=== PATIENT | female | born 1960 | race Caucasian/White ===

== ENCOUNTER 2016-09-10 15:13 | Emergency (ER) | payer OTHER ==
[~2016-09-10] VITALS: Ht 157.5 cm; Wt 84.8 kg
[~2016-09-10 15:13] MED LIST: HYDR-3535 PO; HYDR50TA94 PO; LAMO150 PO; QUET100 PO; TRAZ100 PO; ZOLO50TA PO
[2016-09-10 15:16] VITALS: BP 109/56; PULSE 71; RESP 18; TEMP 98; O2SAT 97
[2016-09-10] MEDS ORDERED: SERT-132 PO (15:30)
[2016-09-10] MEDS ORDERED: TRAZ100T4 PO (15:30)
[2016-09-10] MEDS ORDERED: LAMO150T PO (15:30)
[2016-09-10] MEDS ORDERED: GABA300C5 PO (15:30)
[2016-09-10] MEDS ORDERED: ROBA750T PO (15:30)
[2016-09-10] MEDS ORDERED: QUET1TAB8 PO (15:30)
[2016-09-10] MEDS ORDERED: KETOROLAC TROMETHAMINE 60 MG/2 ML (IM) VIAL IM ONE (15:45)
[2016-09-10] MEDS ORDERED: RESP: ALBUTEROL 2.5 MG/IPRATROPIUM 0.5 MG NEB (SCH) INH ONE (15:45)
[2016-09-10] MEDS ORDERED: predniSONE 20 MG TAB PO ONE (15:45)
[2016-09-10] MEDS ORDERED: PROM6.256 PO (16:04)
[2016-09-10] MEDS ORDERED: ALBUAER3 INH (16:04)
[2016-09-10] MEDS ORDERED: AZIT500T2 PO (16:04)
[2016-09-10] MEDS ORDERED: BENZ100 PO (16:04)
--- NOTE | 2016-09-10 16:05 | PD ---
HPI Chief Complaint: Cold / Flu Symptoms Time Seen by Provider: 15:36 Travel History International Travel<30 days: No Contact w/Intl Traveler<30days: No Traveled to known affect area: No History of Present Illness HPI Patient is a 56-year-old female who presents to emergency room with complaints of cough and congestion and myalgias for the past 3 days. Patient reports that she has had no fevers or chills, reports that her cough has been productive and she has been bringing up increased whitish sputum. Patient does admit to smoking history. Patient reports that every in her apartment complexes sick with similar symptoms. Patient also with complaints of left-sided ear pain. Patient with no chest pain or shortness of breath. Patient with no other complaints. Patient did not receive influenza vaccine this year. PFSH Past Medical History Asthma: No Autoimmune Disease: No Cerebrovascular Accident: No Diabetes: No Diminished Hearing: No Hepatitis: Yes (C) Influenza Vaccination: No ?: Not Ovarian Cysts: Yes Past Surgical History Appendectomy: Yes Gynecologic Surgery: Yes (cystectomy r ovary) Family History Family History: Negative Social History Alcohol Use: No Tobacco Use: Yes (1/2 PPF) Substance Use: No Allergies-Medications (Allergen,Severity, Reaction): Coded Allergies: No Known Allergies (Unverified , 09/10/16) Reported Meds & Prescriptions Reported Meds & Active Scripts Active Proair Hfa 8.5 GM Inh (Albuterol Sulfate) 90 Mcg/Act Aer 2 Puff INH Q4-6H PRN 108 mcg/actuation Promethazine-Codeine Liq 6.25-10 Mg/5 Ml Syrp 5 Ml PO Q6H PRN 7 Days Tessalon Perles (Benzonatate) 100 Mg Cap 100 Mg PO TID PRN Azithromycin 500 Mg Tab 500 Mg PO DAILY Lortab (Hydrocodone-Acetaminophen) 10-325 Mg Tab 1 Tab PO Q6H PRN Reported Lamotrigine 150 Mg Tab 150 Mg PO DAILY Trazodone (Trazodone HCl) 100 Mg Tab 100 Mg PO HS Quetiapine (Quetiapine Fumarate) 100 Mg Tab 100 Mg PO HS Sertraline (Sertraline HCl) 50 Mg Tab 50 Mg PO DAILY Gabapentin 300 Mg Cap 300 Mg PO TID Robaxin (Methocarbamol) 750 Mg Tab 750 Mg PO TID Review of Systems General / Constitutional: No: Fever, Chills Respiratory: Positive: Cough, Wheezing, No: Shortness of Breath Gastrointestinal: No: Nausea, Vomiting, Diarrhea, Abdominal Pain Physical Exam Narrative GENERAL: No acute distress, nontoxic SKIN: Warm and dry. HEAD: Atraumatic. Normocephalic. EYES: No injection or drainage. ENT: No nasal bleeding or discharge. Mucous membranes pink and moist. NECK: Trachea midline. No JVD. CARDIOVASCULAR: Regular rate and rhythm. No murmur appreciated. RESPIRATORY: No accessory muscle use. Scattered wheezing and laterally. Breath sounds equal bilaterally. GASTROINTESTINAL: Abdomen soft, non-tender, nondistended. Hepatic and splenic margins not palpable. MUSCULOSKELETAL: No obvious deformities. No clubbing. No cyanosis. No edema. NEUROLOGICAL: Awake and alert. No obvious cranial nerve deficits. Motor grossly within normal limits. Normal speech. PSYCHIATRIC: Appropriate mood and affect; insight and judgment normal. Data Data Last Documented VS Vital Signs Date Time Temp Pulse Resp B/P Pulse Ox O2 Delivery O2 Flow Rate FiO2 09/10/16 15:16 98.0 71 18 109/56 97 Orders Influenzae A/B Antigen (09/10/16 15:40) Chest, Pa & Lat (09/10/16 15:40) Prednisone (Deltasone) (09/10/16 15:45) Albuterol-Ipratropium Neb (Duoneb Neb) (09/10/16 15:45) Ketorolac Inj (Toradol Inj) (09/10/16 15:45) MDM Medical Decision Making Medical Screen Exam Complete: Yes Emergency Medical Condition: Yes Interpretation(s) Vital Signs Date Time Temp Pulse Resp B/P Pulse Ox O2 Delivery O2 Flow Rate FiO2 09/10/16 15:16 98.0 71 18 109/56 97 Differential Diagnosis Acute bronchitis, pneumonia, influenza Narrative Course Patient is a 56-year-old female presents most room with complaints of cough, congestion for the past 3 days. Patient reports that she is bringing up thick white sputum, denies fevers or chills. Patient reports that everyone in her apartment complex is sick with similar symptoms. vss in er. pt overall nontoxic X-ray chest ordered, check for influenza as patient did not receive influenza vaccine this year. Plan to give patient a dose of oral steroids as well as a DuoNeb. Patient requesting medications for pain as she has been coughing so much, reports that her back hurts her so much from coughing. IM dose of Toradol ordered for patient. X-ray of the chest with small opacity at the left costophrenic angle which could represent infiltrate. Influenza negative. Patient most likely with pneumonia with bronchitis. We'll treat patient with antibiotics. Signs and symptoms of when to return to the emergency room reviewed patient. Patient will follow-up with primary care doctor and return to ER as needed Diagnosis Primary Impression: Pneumonia Qualified Code: J18.9 - Pneumonia due to infectious organism, unspecified laterality, unspecified part of lung Additional Impression: Acute bronchitis Qualified Code: J20.9 - Acute bronchitis, unspecified organism Patient Instructions: General Instructions Departure Forms: Tests/Procedures, Work Release Enter return to work date: Sep 12, 2016 Additional Instructions: Please return to ER as needed Please call your primary care doctor for earliest follow-up Return to ER if symptoms progress or worsen Please stop smoking cigarettes Please complete full course of antibiotic Med/Other Pt SpecificInfo: Prescription(s) given Scripts Albuterol 8.5 GM Inh (Proair Hfa 8.5 GM Inh)90 Mcg/Act Aer2 Puff INH Q4-6H PRN ( SHORTNESS OF BREATH) #1 INHALER Ref 0 108 mcg/actuation Prov:Magi Mathew DO 09/10/16 Promethazine-Codeine Liq 6.25-10 Mg/5 Ml Syrp5 Ml PO Q6H PRN (COUGH AND/OR COLD SYMPTOMS) 7 Days Ref 0 Prov:Magi Mathew DO 09/10/16 Benzonatate (Tessalon Perles)100 Mg [id number] Mg PO TID PRN (COUGH) #30 CAP Ref 0 Prov:Magi Mathew DO 09/10/16 Azithromycin 500 Mg [id number] Mg PO DAILY #5 TAB Ref 0 Prov:Magi Mathew DO 09/10/16 Disposition: 01 DISCHARGE HOME Condition: Stable Magi Mathew DO Sep 10, 2016 16:05
--- NOTE | 2016-09-10 16:18 | RADHPO ---
EXAM DATE/TIME: 09/10/2016 15:50 [facility] COMPARISON: No previous studies available for comparison. INDICATIONS : Fever, cough, short of breath, chest pains MEDICAL HISTORY : None. SURGICAL HISTORY : None. ENCOUNTER: Initial ACUITY: 2 days PAIN SCORE: 5/10 LOCATION: Bilateral chest FINDINGS: 2 view examination of the chest demonstrates the lungs are symmetrically aerated. On the frontal vie w, there is a small opacity adjacent to the left costophrenic angle which might represent a small inf iltrate. No evidence of pleural effusion; both hemidiaphragms well delineated. The heart is normal in size and configuration. No evidence of peribronchial thickening. CONCLUSION: Small opacity left costophrenic angle could represent an infiltrate. Recommend followup exams. Jett Madison MD on September 10, 2016 at 16:15 Board Certified Radiologist. This report was verified electronically.
[2016-09-10] MEDS ORDERED: AMOX875T PO (16:28)
[2016-09-10] MEDS ORDERED: AZITHROMYCIN 250 MG TAB PO ONE (16:30)
== END 2016-09-10 16:46 | disposition home or self-care (01) ==
LOC: PHEFT 15:13
DX: J18.9 Pneumonia, unspecified organism (principal); J20.9 Acute bronchitis, unspecified; H92.02 Otalgia, left ear; F17.200 Nicotine dependence, unspecified, uncomplicated
CPT/HCPCS: 71020; 87804; 94664; 96372; 99283; J1885; J7512

== ENCOUNTER 2016-12-27 16:55 | Emergency (ER) | payer OTHER ==
[~2016-12-27] VITALS: Ht 157.5 cm; Wt 80.0 kg
[~2016-12-27 16:55] MED LIST changes: +ALBUAER3 INH; +AMOX875T PO; +BENZ100 PO; +GABA300C5 PO; -HYDR50TA94 PO; -LAMO150 PO; +LAMO150T PO; +PROM6.256 PO; -QUET100 PO; +QUET1TAB8 PO; +ROBA750T PO; +SERT-132 PO; -TRAZ100 PO; +TRAZ100T4 PO; -ZOLO50TA PO
[2016-12-27 16:57] VITALS: BP 147/85; PULSE 99; RESP 24; TEMP 98.5; O2SAT 96
[2016-12-27] MEDS ORDERED: KETOROLAC TROMETHAMINE 30 MG/ML (IVP) VIAL IVP ONE (17:45)
[2016-12-27] MEDS ORDERED: SODIUM CHLORIDE 0.9% FLUSH 10 ML FLUSH IV FLUSH PRN (17:45)
--- NOTE | 2016-12-27 17:59 | PD ---
HPI . Back pain Chief Complaint: Back/ Neck Pain or Injury Time Seen by Provider: 17:41 Travel History International Travel<30 days: No Contact w/Intl Traveler<30days: No Traveled to known affect area: No History of Present Illness HPI Patient presents stating that she has an old back injury with an HNP. She states that it was a workman's comp case and that the case has been settled. Subsequently, she currently has no care for her chronic back pain. She states that she ran out of her medications 3 months ago. Since then, she has been using Aleve and ice. She states that she has a TENS unit batteries are and that she cannot afford to buy any new ones. Patient presents to us today complaining with a 2 day history of increasing pain in her low back. She states that she chronically has pain radiating to her right leg but that she now has pain radiating to her right groin. She rates the pain as 8/10. Pain is exacerbated by movement. She does not have any GI symptoms such as nausea, vomiting, diarrhea. She does not have any urinary tract symptoms such as dysuria, urgency or frequency. She has no fever. She has no appetite change. Furthermore, she does not have any neurological symptoms such as bowel or bladder incontinence. PFSH Past Medical History Asthma: No Autoimmune Disease: No Cerebrovascular Accident: No Diabetes: No Diminished Hearing: No Hepatitis: Yes (C) ?: Not Ovarian Cysts: Yes Past Surgical History Appendectomy: Yes Gynecologic Surgery: Yes (cystectomy r ovary) Social History Alcohol Use: No Tobacco Use: Yes (1/2 PPF) Substance Use: No Allergies-Medications (Allergen,Severity, Reaction): Coded Allergies: No Known Allergies (Unverified , 09/10/16) Reported Meds & Prescriptions Reported Meds & Active Scripts Active Flexeril (Cyclobenzaprine HCl) 10 Mg Tab 10 Mg PO TID Prednisone (48) 10 mg tab Dose Pack (Prednisone) 10 Mg Dspk 10 Mg PO DIRECTED Gabapentin 300 Mg Cap 300 Mg PO TID Amoxicillin 875 Mg Tab 875 Mg PO BID 10 Days Proair Hfa 8.5 GM Inh (Albuterol Sulfate) 90 Mcg/Act Aer 2 Puff INH Q4-6H PRN 108 mcg/actuation Promethazine-Codeine Liq 6.25-10 Mg/5 Ml Syrp 5 Ml PO Q6H PRN 7 Days Tessalon Perles (Benzonatate) 100 Mg Cap 100 Mg PO TID PRN Lortab (Hydrocodone-Acetaminophen) 10-325 Mg Tab 1 Tab PO Q6H PRN Reported Lamotrigine 150 Mg Tab 150 Mg PO DAILY Trazodone (Trazodone HCl) 100 Mg Tab 100 Mg PO HS Quetiapine (Quetiapine Fumarate) 100 Mg Tab 100 Mg PO HS Sertraline (Sertraline HCl) 50 Mg Tab 50 Mg PO DAILY Robaxin (Methocarbamol) 750 Mg Tab 750 Mg PO TID Review of Systems Except as stated in HPI: all other systems reviewed are Neg General / Constitutional: No: Fever, Chills Gastrointestinal: Positive: Abdominal Pain, No: Nausea, Vomiting, Diarrhea, Loss of Appetite Genitourinary: No: Urgency, Frequency, Dysuria, Incontinence Musculoskeletal: Positive: Myalgias, No: Weakness Physical Exam Narrative GENERAL: Awake and alert and in no acute distress. I found the patient lying on the stretcher twisted to her left at the waist with her left leg extended and on the stretcher and with her right leg extended at the hip and flexed the with the right foot on the floor. SKIN: Warm and dry. HEAD: Atraumatic. Normocephalic. EYES: Pupils equal and round. NECK: Trachea midline. CARDIOVASCULAR: Regular rate and rhythm. RESPIRATORY: No accessory muscle use. ABDOMEN: Abdomen is soft and nontender. Her pain is actually in her right groin. MUSCULOSKELETAL: No obvious deformities. No edema. Tenderness to percussion in the lower lumbar back. Leg raise bilaterally is negative. She has full and equal muscle strength in all muscle groups of her lower extremities. Log rolling of the right hip does not increase or groin pain. NEUROLOGICAL: Awake and alert. No obvious cranial nerve deficits. Motor grossly within normal limits. Normal speech. PSYCHIATRIC: Appropriate mood and affect; insight and judgment normal. Data Data Last Documented VS Vital Signs Date Time Temp Pulse Resp B/P Pulse Ox O2 Delivery O2 Flow Rate FiO2 12/27/16 16:57 98.5 99 24 147/85 96 Room Air Orders Complete Blood Count With Diff (12/27/16 17:41) Comprehensive Metabolic Panel (12/27/16 17:41) Urinalysis - C+S If Indicated (12/27/16 17:41) Iv Access Insert/Monitor (12/27/16 17:41) Sodium Chloride 0.9% Flush (Ns Flush) (12/27/16 17:45) Ketorolac Inj (Toradol Inj) (12/27/16 17:45) Ed Urine Pregnancytest Poc (12/27/16 17:41) Mri L Spine W/O Contrast (12/27/16 17:41) Cath For Specimen (12/27/16 19:29) Orphenadrine Inj (Norflex Inj) (12/27/16 19:45) Urine Culture (12/27/16 19:55) Labs Laboratory Tests Test 12/27/16 12/27/16 17:50 19:55 White Blood Count 6.0 TH/MM3 Red Blood Count 4.40 MIL/MM3 Hemoglobin 13.9 GM/DL Hematocrit 41.0 % Mean Corpuscular Volume 93.2 FL Mean Corpuscular Hemoglobin 31.5 PG Mean Corpuscular Hemoglobin 33.9 % Concent Red Cell Distribution Width 13.7 % Platelet Count 183 TH/MM3 Mean Platelet Volume 8.5 FL Neutrophils (%) (Auto) 53.2 % Lymphocytes (%) (Auto) 32.0 % Monocytes (%) (Auto) 12.7 % Eosinophils (%) (Auto) 1.1 % Basophils (%) (Auto) 1.0 % Neutrophils # (Auto) 3.2 TH/MM3 Lymphocytes # (Auto) 1.9 TH/MM3 Monocytes # (Auto) 0.8 TH/MM3 Eosinophils # (Auto) 0.1 TH/MM3 Basophils # (Auto) 0.1 TH/MM3 CBC Comment DIFF FINAL Differential Comment Sodium Level 140 MEQ/L Potassium Level 4.1 MEQ/L Chloride Level 108 MEQ/L Carbon Dioxide Level 25.8 MEQ/L Anion Gap 6 MEQ/L Blood Urea Nitrogen 13 MG/DL Creatinine 0.98 MG/DL Estimat Glomerular Filtration 59 ML/MIN Rate Random Glucose 92 MG/DL Calcium Level 9.4 MG/DL Total Bilirubin 0.4 MG/DL Aspartate Amino Transf 51 U/L (AST/SGOT) Alanine Aminotransferase 57 U/L (ALT/SGPT) Alkaline Phosphatase 69 U/L Total Protein 7.8 GM/DL Albumin 4.0 GM/DL Urine Color YELLOW Urine Turbidity HAZY Urine pH 6.0 Urine Specific [place] 1.030 Urine Protein TRACE mg/dL Urine Glucose (UA) NEG mg/dL Urine Ketones NEG mg/dL Urine Occult Blood NEG Urine Nitrite POS Urine Bilirubin NEG Urine Urobilinogen 2.0 MG/DL Urine Leukocyte Esterase MOD Urine RBC 4 /hpf Urine WBC 19 /hpf Urine Squamous Epithelial 1 /hpf Cells Urine Bacteria MANY /hpf Urine Hyaline Casts 3 /lpf Urine Mucus FEW /lpf Microscopic Urinalysis Comment CULTURE INDICATED MDM Medical Decision Making Medical Screen Exam Complete: Yes Emergency Medical Condition: Yes Differential Diagnosis Differential diagnosis includes but is not limited to muscular low back pain, DDD, spinal stenosis, epidural abscess, sciatica, kidney infection or stone. Narrative Course Patient presents complaining with low back pain radiating to the right leg and now to the right groin. I have ordered routine labs to look for an acute abdominal problem. I have ordered an MRI of her spine to rule out a surgical emergency associated with her spine. CBC & BMP Diagram 12/27/16 17:50 UA shows many bacteria, 19 white blood cells, positive nitrite and moderate leukocyte esterase Last Impressions Lumbar Spine MRI 12/27/16 [id number] Signed Impressions: Service Date/Time: Sunday, December 27, 2016 18:35 - CONCLUSION: 1. Degenerative disc disease and facet arthritis asymmetric to the right at L5-S1 with significant right-sided foraminal narrowing. If the patient has symptoms correlating to this diagnostic and therapeutic fluoroscopically guided nerve root injection could be considered if clinically indicated. Jimenez English MD Diagnosis Primary Impression: Degenerative disc disease at L5-S1 level Additional Impression: Urinary tract infection Qualified Code: N30.00 - Acute cystitis without hematuria Patient Instructions: Degenerative Disc Disease (DC), General Instructions Med/Other Pt SpecificInfo: Prescription(s) given Scripts Nitrofurantoin Monohydrate Macrocrystals (Macrobid)100 Mg [id number] Mg PO BID 7 Days Ref 0 Prov:Margarita Jones MD 12/27/16 Tizanidine (Zanaflex)6 Mg Cap6 Mg PO TID #90 CAP Ref 0 Prov:Margarita Jones MD 12/27/16 Prednisone (48) 10 mg tab Dose Pack 10 Mg [id number] Mg PO DIRECTED #1 DSPK Ref 0 Prov:Margarita Jones MD 5/17/17 Gabapentin 300 Mg [id number] Mg PO TID #90 CAP Ref 0 Prov:Margarita Jones MD 12/27/16 Disposition: 01 DISCHARGE HOME Condition: Stable Margarita Jones MD December 27, 2016 17:59
[2016-12-27 18:10] LABS: AUTOMATED NEUTROPHIL # 3.2 TH/MM3 (1.8-7.7); BASOPHIL # 0.1 TH/MM3 (0-0.2); EOSINOPHIL # 0.1 TH/MM3 (0-0.4); EOSINOPHIL % 1.1 % (0.0-4.0); HEMO FLAGS DIFF FINAL; LYMPHOCYTE # 1.9 TH/MM3 (1.0-4.8); MEAN CELL VOLUME 93.2 FL (80.0-100.0); MEAN CORPUSCULAR HEMOGLOBIN 31.5 PG (27.0-34.0); MEAN CORPUSCULAR HGB CONC 33.9 % (32.0-36.0); MONO % 12.7 % (0.0-8.0); NEUT % 53.2 % (16.0-70.0); PLATELET COUNT 183 TH/MM3 (150-450); RED CELL DISTRIBUTION WIDTH 13.7 % (11.6-17.2)
[2016-12-27 18:35] LABS: ALT (GPT) 57 U/L (10-53); ANION GAP 6 MEQ/L (5-15); AST (GOT) 51 U/L (15-37); BICARBONATE 25.8 MEQ/L (21.0-32.0); BLOOD UREA NITROGEN 13 MG/DL (7-18); CHLORIDE 108 MEQ/L (98-107); GLOMERULAR FILTRATION RATE 59 ML/MIN (>89); POTASSIUM 4.1 MEQ/L (3.5-5.1); SODIUM (NA) 140 MEQ/L (136-145)
[2016-12-27 18:38] LABS: ALKALINE PHOSPHATASE 69 U/L (45-117); TOTAL BILIRUBIN ADULT 0.4 MG/DL (0.2-1.0)
--- NOTE | 2016-12-27 19:28 | RADRPT ---
EXAM DATE/TIME: 12/27/2016 18:35 [facility] COMPARISON: No previous studies available for comparison. INDICATIONS : HNP. Back pain radiating to right leg. MEDICAL HISTORY : Hepatitis C. SURGICAL HISTORY : Appendectomy. ENCOUNTER: Initial ACUITY: 2 day PAIN SCORE: 9/10 LOCATION: back. TECHNIQUE: Multiplanar multisequence MRI of the lumbar spine was performed without contrast. FINDINGS: Sagittal images demonstrate normal vertebral body alignment and curvature. No focal areas of marrow r eplacement are identified. The conus terminates normally. Axial images were performed from T12-L1 thr ough L5-S1. T12-L1: No significant abnormalities identified. L1-L2: There is mild diffuse annular bulge of the disc. The neural foramina are clear bilaterally. There is no significant spinal canal stenosis. L2-L3: There is no evidence of disc protrusion or spinal canal stenosis. There is mild facet arthritis bilat erally. L3-L4: There is mild annular bulge of the disc. There is mild facet arthritis and ligamentum flavum hypertro phy bilaterally. The neural foramina are clear bilaterally. L4-L5: There is mild annular bulge of the disc. There is no significant spinal canal stenosis. L5-S1: There is mild annular bulge of the disc asymmetric to the right. There is moderate facet arthritis an d ligamentum flavum hypertrophy on the right. There is moderate to severe right-sided foraminal narro wing. There is no significant spinal canal stenosis. CONCLUSION: 1. Degenerative disc disease and facet arthritis asymmetric to the right at L5-S1 with significant ri ght-sided foraminal narrowing. If the patient has symptoms correlating to this diagnostic and therape uti fluoroscopically guided nerve root injection could be considered if clinically indicated. Jimenez English MD on December 27, 2016 at 19:23 Board Certified Radiologist. This report was verified electronically.
[2016-12-27] MEDS ORDERED: ORPHENADRINE INJ 60 MG/2 ML AMP IM ONE (19:45)
[2016-12-27] MEDS ORDERED: CYCL1TAB29 PO (20:05)
[2016-12-27] MEDS ORDERED: GABA300C5 PO (20:05)
[2016-12-27] MEDS ORDERED: PRED10PA2 PO (20:05)
[2016-12-27 20:13] LABS: BACTERIA, URINE MANY /hpf; BLOOD, URINE NEG (NEG); COMMENT (UR) CULTURE INDICATED; CULTURE IF INDICATED CULTURE INDICATED; GLUCOSE,URINE NEG (NEG); HYALINE CAST, URINE 3 /lpf (RARE); KETONE, URINE NEG (NEG); MUCUS URINE FEW /lpf (OCC); NITRITE,URINE POS (NEG); SQUAMOUS EPITHELIAL CELL URINE 1 /hpf (0-5); URINE COLOR YELLOW (YELLW/STRAW)
[2016-12-27] MEDS ORDERED: MACR100C2 PO (20:31)
[2016-12-27] MEDS ORDERED: ZANA6CAP PO (20:31)
== END 2016-12-27 20:54 | disposition home or self-care (01) ==
LOC: NEPD 16:55
DX: M51.37 Other intervertebral disc degeneration, lumbosacral region (principal); N30.00 Acute cystitis without hematuria; B96.20 Unspecified Escherichia coli [E. coli] as the cause of diseases classified elsewhere
CPT/HCPCS: 72148; 80053; 81001; 84703; 85025; 87077; 87086; 87186; 96372; 96374; 99284; J1885; J2360

== ENCOUNTER 2017-05-09 12:43 | Emergency (ER) | payer OTHER ==
[~2017-05-09] VITALS: Ht 157.5 cm; Wt 75.0 kg
[~2017-05-09 12:43] MED LIST changes: +MACR100C2 PO; +PRED10PA2 PO; +ZANA6CAP PO
[2017-05-09 12:44] VITALS: BP 131/83; PULSE 76; RESP 18; TEMP 98.3; O2SAT 98
--- NOTE | 2017-05-09 12:48 | PD ---
Physical Exam Time Seen by Provider: 12:47 Narrative 56 y/o female here with chills, lower back pain, dysuria, abnormal bowel movements for one month. Vital signs reviewed. Seen at triage desk. Awaiting bed placement. Data Data Last Documented VS Vital Signs Date Time Temp Pulse Resp B/P (MAP) Pulse Ox O2 Delivery O2 Flow Rate FiO2 05/09/17 12:44 98.3 76 18 131/83 (99) 98 Room Air [facility] Medical Record Reviewed: Yes Supervised Visit with SOSA: Chris Torres May 09, 2017 12:47
[2017-06-06] MEDS ORDERED: HYDR50TA94 PO (09:14)
[2017-06-06] MEDS ORDERED: QUET1TAB7 PO (09:14)
== END 2017-05-09 16:27 | disposition left against medical advice (07) ==
LOC: NED 12:43
DX: M54.5 Low back pain (principal); R30.0 Dysuria; Z53.21 Procedure and treatment not carried out due to patient leaving prior to being seen by health care provider
CPT/HCPCS: 99281

== ENCOUNTER 2017-08-14 16:37 | Emergency (ER) | payer OTHER ==
[~2017-08-14] VITALS: Ht 157.5 cm; Wt 81.8 kg
[~2017-08-14 16:37] MED LIST changes: -ALBUAER3 INH; -AMOX875T PO; -BENZ100 PO; -GABA300C5 PO; -HYDR-3535 PO; +HYDR50TA94 PO; -LAMO150T PO; -MACR100C2 PO; -PRED10PA2 PO; -PROM6.256 PO; +QUET1TAB7 PO; -QUET1TAB8 PO; -ROBA750T PO; -SERT-132 PO; -TRAZ100T4 PO; -ZANA6CAP PO
[2017-08-14 16:59] VITALS: BP 128/91; PULSE 78; RESP 14; TEMP 97.8; O2SAT 98
--- NOTE | 2017-08-14 18:13 | PD ---
HPI Chief Complaint: Psychiatric Symptoms Time Seen by Provider: 18:09 Travel History International Travel<30 days: No Contact w/Intl Traveler<30days: No Traveled to known affect area: No History of Present Illness HPI 57-year-old female brought in under the [employer] act for suicidal ideation. Patient has a long history of depression with suicidal ideation the past. Patient has to document suicidal attempts. Patient states her meds don' t seem to be working currently. She is also a history of chronic back pain, chronic right knee pain, as well as history of diverticulitis in the past. She currently has no acute medical problems. She is allergic to sulfa. PFSH Past Medical History Asthma: No Autoimmune Disease: No Cerebrovascular Accident: No Diabetes: No Diminished Hearing: No Hepatitis: Yes (C) Ovarian Cysts: Yes Past Surgical History Appendectomy: Yes Gynecologic Surgery: Yes (cystectomy r ovary) Social History Alcohol Use: No Tobacco Use: Yes (/ PPF) Substance Use: No Allergies-Medications (Allergen,Severity, Reaction): Coded Allergies: Sulfa (Sulfonamide Antibiotics) (Verified Allergy, Severe, 06/06/17) Reported Meds & Prescriptions Reported Meds & Active Scripts Active Hydroxyzine HCl 50 Mg Tab 50 Mg PO HS Quetiapine (Quetiapine Fumarate) 25 Mg Tab 25 Mg PO HS Review of Systems Except as stated in HPI: all other systems reviewed are Neg General / Constitutional: No: Fever Eyes: No: Visual changes HENT: No: Headaches Cardiovascular: No: Chest Pain or Discomfort Respiratory: No: Shortness of Breath Gastrointestinal: No: Abdominal Pain Genitourinary: No: Dysuria Musculoskeletal: Positive: Arthralgias, Pain Skin: No Rash Neurologic: No: Weakness Psychiatric: Positive: Depression, Suicidal Ideations (see history of present illness), No: Homicidal Ideation Endocrine: No: Polydipsia Hematologic/Lymphatic: No: Easy Bruising Physical Exam Narrative GENERAL: Patient appears in no acute distress. SKIN: Warm and dry. Normal color. Normal turgor. No signs of trauma. HEAD: Atraumatic. Normocephalic. EYES: Pupils equal and round. No scleral icterus. No injection or drainage. ENT: No nasal bleeding or discharge. Mucous membranes pink and moist. Pharynx is clear. Airway is patent. NECK: Trachea midline. Supple nontender. CARDIOVASCULAR: Regular rate and rhythm. RESPIRATORY: No accessory muscle use. Clear to auscultation. Breath sounds equal bilaterally. GASTROINTESTINAL: Abdomen soft, non-tender, nondistended. Hepatic and splenic margins not palpable. MUSCULOSKELETAL: Extremities without clubbing, cyanosis, or edema. No obvious deformities. Patient complains of low back pain with palpation but no specific tenderness is noted. No bony tenderness or step-off noted. NEUROLOGICAL: Awake and alert. No obvious cranial nerve deficits. Motor grossly within normal limits. Five out of 5 muscle strength in the arms and legs. Normal speech. PSYCHIATRIC: Appropriate mood and affect; insight and judgment normal. Data Data Last Documented VS Vital Signs Date Time Temp Pulse Resp B/P (MAP) Pulse Ox O2 Delivery O2 Flow Rate FiO2 08/14/17 16:59 97.8 78 14 128/91 (103) 98 Orders Orders Diet Regular Basic (08/14/17 Dinner) Complete Blood Count With Diff (08/14/17 17:59) Comprehensive Metabolic Panel (08/14/17 17:59) Urinalysis - C+S If Indicated (08/14/17 17:59) Psych Screen (08/14/17 17:59) Drug Screen, Random Urine (08/14/17 17:59) MDM Medical Decision Making Medical Screen Exam Complete: Yes Emergency Medical Condition: Yes Medical Record Reviewed: Yes Differential Diagnosis Loco act. Suicidal ideation. History of attempted suicide in the past. Low back pain. Narrative Course Psychiatric labs ordered as per protocol. Patient is given ibuprofen 600 mg by mouth as well as 650 mg acetaminophen by mouth. Patient is medically cleared for psychiatric evaluation. Diagnosis Primary Impression: Suicidal ideation Additional Impression: Medical clearance for psychiatric admission Condition: Stable Gopi Tee Aug 14, 2017 18:13
[2017-08-14] MEDS ORDERED: ACETAMINOPHEN 325 MG TAB PO ONE (18:15)
[2017-08-14] MEDS ORDERED: IBUPROFEN 600 MG TAB PO ONE (18:15)
[2017-08-14 18:31] VITALS: BP 127/72; PULSE 77; RESP 18; O2SAT 97
[2017-08-14 18:45] LABS: AUTOMATED NEUTROPHIL # 2.5 TH/MM3 (1.8-7.7); BASOPHIL # 0.1 TH/MM3 (0-0.2); BASOPHIL % 1.1 % (0.0-2.0); EOSINOPHIL # 0.2 TH/MM3 (0-0.4); EOSINOPHIL % 2.8 % (0.0-4.0); HEMATOCRIT 41.1 % (35.0-46.0); HEMOGLOBIN 14.2 GM/DL (11.6-15.3); LYMPH % 44.7 % (9.0-44.0); LYMPHOCYTE # 2.7 TH/MM3 (1.0-4.8); MEAN CELL VOLUME 92.8 FL (80.0-100.0); MEAN CORPUSCULAR HEMOGLOBIN 32.1 PG (27.0-34.0); MEAN CORPUSCULAR HGB CONC 34.6 % (32.0-36.0); MEAN PLATELET VOLUME 8.2 FL (7.0-11.0); MONO % 10.9 % (0.0-8.0); MONOCYTE # 0.7 TH/MM3 (0-0.9); NEUT % 40.5 % (16.0-70.0); PLATELET COUNT 197 TH/MM3 (150-450); RED BLOOD COUNT 4.43 MIL/MM3 (4.00-5.30); RED CELL DISTRIBUTION WIDTH 12.8 % (11.6-17.2); WHITE BLOOD COUNT 6.1 TH/MM3 (4.0-11.0)
[2017-08-14] MEDS ORDERED: LAMO100T PO (18:49)
[2017-08-14] MEDS ORDERED: SERT-132 PO (18:49)
[2017-08-14] MEDS ORDERED: TRAZ300T2 PO (18:49)
[2017-08-14 19:16] LABS: ALKALINE PHOSPHATASE 91 U/L (45-117); ALT (GPT) 62 U/L (10-53); TOTAL BILIRUBIN ADULT 0.3 MG/DL (0.2-1.0); TOTAL PROTEIN 7.9 GM/DL (6.4-8.2)
[2017-08-14 19:18] LABS: ALBUMIN 3.7 GM/DL (3.4-5.0); AST (GOT) 61 U/L (15-37); BICARBONATE 28.1 MEQ/L (21.0-32.0); BLOOD UREA NITROGEN 10 MG/DL (7-18); CALCIUM 9.3 MG/DL (8.5-10.1); CHLORIDE 105 MEQ/L (98-107); CREATININE 0.91 MG/DL (0.50-1.00); GLOMERULAR FILTRATION RATE 64 ML/MIN (>89); GLUCOSE,RANDOM 89 MG/DL (74-106); SODIUM (NA) 138 MEQ/L (136-145)
--- NOTE | 2017-08-14 19:37 | PD ---
History of Present Illness Chief Complaint: Psychiatric Symptoms Time Seen by Provider: 18:50 Travel History International Travel<30 Days: No Contact w/Intl Traveler<30days: No Known affected area: No Legal Status Legal Status: Voluntary History of Present Illness: History of Present Illness HPI 57-year-old female with a reported history of bipolar disorder, PTSD, and unknown personality disorder who presents to the ED on a voluntary basis for psychiatric evaluation. As per ED department documentation reviewed she reported that " her meds don't seem to be working currently". Electronic medical record is reviewed. Patient was evaluated in 2011 after she presented to the emergency department after having drank some alcohol and fell into the [place]. She was also seen a second time in 2011 with complaints that her medication has not been working. Patient is seen. She appears older than stated age. Dressed in [facility] with fair hygiene and grooming. Patient is just finishing her dinner. Her speech is clear, logical, goal-directed. She is rather vague in her presentation of current symptoms. Her complaints are that her medications aren' t working as well, that she is losing objects such as her glasses, that she has difficulty spelling certain words. She admits to having suicidal thoughts which she reports that she's had 4 many years. There is no active suicidal ideation, intent or plan. She does state" sticking my head in the oven sounds like a good plan . She then states "but I have an electric oven". Patient has not made any attempt at harming herself. There is no psychomotor agitation, no logan or hypomania. There is no evidence of any psychosis. Patient does not appear significantly depressed at this time. She verbalizes her frustration regarding not having any money and she is currently unable to work due to reports of act pain. She has applied for Social Security disability and is upset that they will not look at her psychiatric record and will only look at her medical issues. She reports her current stressors include having had some disagreements with a friend 2 months ago and with another friend 2 weeks ago. These were friends that would help her with getting rides to her appointments. Patient also reports she's having financial stressors. She was seen and evaluated at [facility] outpatient clinic on August 08 and was recommended a medication increase. She has not increased her medication as she was advised. [facility] Past Medical History Asthma: No Autoimmune Disease: No Cerebrovascular Accident: No Diabetes: No Diminished Hearing: No Hepatitis: Yes (C) Ovarian Cysts: Yes Past Surgical History Appendectomy: Yes Gynecologic Surgery: Yes (cystectomy r ovary) Psychiatric History Psychiatric History Hx Psychiatric Treatment: Reports she has had numerous psychiatric evaluations and hospitalizations. Her last psychiatric hospitalization was 6 years ago at [facility]. She also reports she's had multiple admissions for substance abuse treatment. History of Inpatient Treatment: Yes Guns or firearms in home: No Social History female. Born and [place] but has lived in [place] for the past 6 years. Lives with a roommate for the past 5 years. Currently unemployed. Applying for Social Security disability. Hx Alcohol Use: No Hx Tobacco Use: Yes (1/2 PPF) Hx Substance Use: No Substance Use Type: Marijuana, Synth Opiates-Pain Pills Other Substances Used: Patient states she does not use opiates any longer, but admits to marijuana Hx of Substance Use Treatment: Yes Family Psychiatric History allegedly committed suicide. Allergies-Medications (Allergen,Severity, Reaction): Coded Allergies: Sulfa (Sulfonamide Antibiotics) (Verified Allergy, Severe, 06/06/17) Reported Meds & Prescriptions Reported Meds & Active Scripts Active Hydroxyzine HCl 50 Mg Tab 50 Mg PO HS Quetiapine (Quetiapine Fumarate) 25 Mg Tab 25 Mg PO HS Reported Sertraline (Sertraline HCl) 50 Mg Tab 50 Mg PO DAILY Trazodone (Trazodone HCl) 300 Mg Tab 300 Mg PO HS Lamotrigine 100 Mg Tab 75 Mg PO BID Review of Systems Musculoskeletal: COMPLAINS OF: Stiffness, Back pain Psychiatric: COMPLAINS OF: Mood changes Mental Status Examination Appearance: Appropriate (patient is dressed in [facility]) Consciousness: Alert Orientation: x4 Motor Activity: Normal gait Speech: Unremarkable Language: Adequate Fund of Knowledge: Adequate Attention and Concentration: Adequate Memory: Unremarkable Mood: Anxious Affect: Appropriate Thought Process & Associations: Intact, Logical, Goal directed Thought Content: Appropriate Hallucination Type: None Delusion Type: None Suicidal Ideation: Yes Suicidal Plan: No Suicidal Intention: No Homicidal Ideation: No Homicidal Plan: No Homicidal Intention: No Insight: Fair Judgment: Adequate MDM Medical Decision Making Medical Record Reviewed: Yes Assessment/Plan 57-year-old female with a reported history of bipolar disorder, PTSD, and unknown personality disorder who presents to the ED on a voluntary basis for psychiatric evaluation. As per ED department documentation reviewed she reported that " her meds don't seem to be working currently". After evaluation is determined that patient does not present criteria for increase in level of care such as inpatient psychiatric admission. She reports chronic and persistent suicidal thoughts with no current ideation, intent and no plan. Patient also presents some behaviors during the evaluation consistent with borderline personality disorder. She presented to the emergency department wanting to have her medications evaluated. I have recommended that she increase Seroquel to 50 mg at bedtime as well as to increase her Lamictal to 150 mg. The patient is provided psychoeducation. She is advised to follow up with Shravan Friedman tomorrow morning to request an earlier appointment. She has an appointment schedule for October. Orders Orders Diet Regular Basic (08/14/17 Dinner) Complete Blood Count With Diff (08/14/17 17:59) Comprehensive Metabolic Panel (08/14/17 17:59) Ibuprofen (Motrin) (08/14/17 18:15) Acetaminophen (Tylenol) (08/14/17 18:15) Ed Discharge Order (08/14/17 19:13) Results Vital Signs Date Time Temp Pulse Resp B/P (MAP) Pulse Ox O2 Delivery O2 Flow Rate FiO2 08/14/17 18:31 77 18 127/72 (90) 97 Room Air 08/14/17 16:59 97.8 78 14 128/91 (103) 98 Laboratory Tests Test 08/14/17 18:29 White Blood Count 6.1 Red Blood Count 4.43 Hemoglobin 14.2 Hematocrit 41.1 Mean Corpuscular Volume 92.8 Mean Corpuscular Hemoglobin 32.1 Mean Corpuscular Hemoglobin Concent 34.6 Red Cell Distribution Width 12.8 Platelet Count 197 Mean Platelet Volume 8.2 Neutrophils (%) (Auto) 40.5 Lymphocytes (%) (Auto) 44.7 Monocytes (%) (Auto) 10.9 Eosinophils (%) (Auto) 2.8 Basophils (%) (Auto) 1.1 Neutrophils # (Auto) 2.5 Lymphocytes # (Auto) 2.7 Monocytes # (Auto) 0.7 Eosinophils # (Auto) 0.2 Basophils # (Auto) 0.1 CBC Comment DIFF FINAL Differential Comment Blood Urea Nitrogen 10 Creatinine 0.91 Random Glucose 89 Total Protein 7.9 Albumin 3.7 Calcium Level 9.3 Alkaline Phosphatase 91 Aspartate Amino Transf (AST/SGOT) 61 Alanine Aminotransferase (ALT/SGPT) 62 Total Bilirubin 0.3 Sodium Level 138 Potassium Level 4.7 Chloride Level 105 Carbon Dioxide Level 28.1 Anion Gap 5 Estimat Glomerular Filtration Rate 64 Diagnosis Primary Impression: Medical clearance for psychiatric admission Additional Impression: Adjustment disorder Ruled Out: Suicidal ideation Psychiatrically Cleared: Yes Departure Forms: Tests/Procedures Patient Instructions: General Instructions Additional Instructions: INCREASE SEROQUEL TO 50 MG AT BEDTIME. INCREASE LAMICTAL TO 150 MG IN THE MORNING. FOLLOW UP AT [facility]. Med/ Other Pt Specific Info: Existing Med Changed Disposition: 01 DISCHARGE HOME Condition: Stable Problem Qualifiers Additional Impression: Adjustment disorder Qualified Codes: F43.23 - Adjustment disorder with mixed anxiety and depressed mood Jo Marques Aug 14, 2017 19:37
== END 2017-08-14 20:30 | disposition home or self-care (01) ==
LOC: NEPJ 16:37
DX: F43.23 Adjustment disorder with mixed anxiety and depressed mood (principal); F31.9 Bipolar disorder, unspecified; F17.200 Nicotine dependence, unspecified, uncomplicated
CPT/HCPCS: 80053; 85025; 99283

== ENCOUNTER 2017-12-15 12:16 | Emergency (ER) | payer SELFPAY ==
[~2017-12-15] VITALS: Ht 157.5 cm; Wt 82.0 kg
[~2017-12-15 12:16] MED LIST changes: +LAMO100T PO; +SERT-132 PO; +TRAZ300T2 PO
[2017-12-15 12:38] VITALS: BP 124/69; PULSE 73; RESP 18; TEMP 98.4; O2SAT 94
[2017-12-15] MEDS ORDERED: DICL75TA PO (12:51)
[2017-12-15] MEDS ORDERED: BACL10TA PO (12:51)
--- NOTE | 2017-12-15 12:56 | PD ---
HPI Chief Complaint: Back/ Neck Pain or Injury Time Seen by Provider: 12:44 Travel History International Travel<30 days: No Contact w/Intl Traveler<30days: No Traveled to known affect area: No History of Present Illness HPI 57-year-old female presents for evaluation of low back pain. Reports a history of lower back pain chronically, herniated disks, sciatic symptoms in the right leg. She reports that 4 days ago she was sitting in a cramped car and began having increased pain in her left lower back that radiates down the left leg. Pain is sharp and shooting worse with movement, unrelieved with gabapentin and TENS unit. Denies bowel or bladder incontinence, saddle anesthesia, abdominal pain. No other complaints. PFSH Past Medical History Asthma: No Autoimmune Disease: No Cerebrovascular Accident: No Diabetes: No Diminished Hearing: No Hepatitis: Yes (C) Ovarian Cysts: Yes Past Surgical History Appendectomy: Yes Gynecologic Surgery: Yes (cystectomy r ovary) Social History Alcohol Use: No Tobacco Use: Yes (1/2 PPF) Substance Use: No Allergies-Medications (Allergen,Severity, Reaction): Coded Allergies: Sulfa (Sulfonamide Antibiotics) (Verified Allergy, Severe, 12/15/17) Reported Meds & Prescriptions Reported Meds & Active Scripts Active Diclofenac Sodium DR (Diclofenac Sodium) 75 Mg Tabdr 75 Mg PO BID 7 Days Baclofen 10 Mg Tab 10 Mg PO Q8HR 7 Days Hydroxyzine HCl 50 Mg Tab 50 Mg PO HS Quetiapine (Quetiapine Fumarate) 25 Mg Tab 25 Mg PO HS Reported Sertraline (Sertraline HCl) 50 Mg Tab 50 Mg PO DAILY Trazodone (Trazodone HCl) 300 Mg Tab 300 Mg PO HS Lamotrigine 100 Mg Tab 75 Mg PO BID Review of Systems Except as stated in HPI: all other systems reviewed are Neg Physical Exam Narrative GENERAL: Well-developed well-nourished female no acute distress SKIN: Warm and dry. CARDIOVASCULAR: Regular rate and rhythm. No murmur appreciated. RESPIRATORY: No accessory muscle use. Clear to auscultation. Breath sounds equal bilaterally. GASTROINTESTINAL: Abdomen soft, non-tender, nondistended. Hepatic and splenic margins not palpable. MUSCULOSKELETAL: No obvious deformities. Some tenderness to palpation to the bilateral lumbosacral region. Full range of motion lower extremities. No lower extremity edema. 2+ dorsalis pedis pulse bilaterally. NEUROLOGICAL: Awake and alert. No obvious cranial nerve deficits. Motor grossly within normal limits. Normal speech. Data Data Last Documented VS Vital Signs Date Time Temp Pulse Resp B/P (MAP) Pulse Ox O2 Delivery O2 Flow Rate FiO2 12/15/17 12:38 98.4 73 18 124/69 (87) 94 Orders Orders Ketorolac Inj (Toradol Inj) (12/15/17 13:00) Orphenadrine Inj (Norflex Inj) (12/15/17 13:00) Dexamethasone Inj (Decadron Inj) (12/15/17 13:00) [facility] Medical Decision Making Medical Screen Exam Complete: Yes Emergency Medical Condition: Yes Medical Record Reviewed: Yes Differential Diagnosis Herniated mucous pulposis, degenerative disc disease, spinal stenosis, muscle spasm, compression fracture Narrative Course The patient reports that she has had some success in the past with glucocorticoid use and muscle relaxants. She will be given a dose of Decadron as well as Toradol, Norflex. She will be discharged with diclofenac and baclofen. Diagnosis Primary Impression: Lumbosacral radiculopathy Additional Instructions: Medication as needed. Avoid strenuous activity, heavy lifting. Follow-up with primary care physician. Return for any emergent medical conditions. Med/Other Pt SpecificInfo: Prescription(s) given Scripts Diclofenac Sodium DR (Diclofenac Sodium DR) 75 Mg Tabdr 75 MG PO BID for 7 Days, #14 TAB 0 Refills Prov: Romero Graf MD 12/15/17 Baclofen (Baclofen) 10 Mg Tab 10 MG PO Q8HR for 7 Days, TAB 0 Refills Prov: Romero Graf MD 12/15/17 Disposition: 01 DISCHARGE HOME Condition: Stable Chris Marquis December 15, 2017 12:56
[2017-12-15] MEDS ORDERED: DEXAMETHASONE SOD PHOS 4 MG/ML VIAL IM ONE (13:00)
[2017-12-15] MEDS ORDERED: ORPHENADRINE INJ 60 MG/2 ML AMP IM ONE (13:00)
[2017-12-15] MEDS ORDERED: KETOROLAC TROMETHAMINE 60 MG/2 ML (IM) VIAL IM ONE (13:00)
== END 2017-12-15 13:15 | disposition home or self-care (01) ==
LOC: NEPD 12:16
DX: M54.17 Radiculopathy, lumbosacral region (principal); F17.200 Nicotine dependence, unspecified, uncomplicated; Z88.2 Allergy status to sulfonamides; Z86.19 Personal history of other infectious and parasitic diseases
CPT/HCPCS: 96372; 99283; J1100; J1885; J2360